=== PATIENT | male | born 1995 | race Caucasian/White ===

== ENCOUNTER 2024-09-06 09:00 | Emergency (ER) | payer OTHER ==
[~2024-09-06] VITALS: Ht 177.8 cm; Wt 64.0 kg
[2024-09-06 09:04] VITALS: BP 148/90; PULSE 78; RESP 16; TEMP 36.9; O2SAT 98
[2024-09-06] MEDS: KETOROLAC 30MG/ML VIAL IM STA (09:22)
[2024-09-06] MEDS: ACETAMINOPHEN 325MG TABLET PO STA (09:22)
[2024-09-06 09:55] LABS: CHLORIDE 97 mEq/L (98-107); POTASSIUM 3.8 mEq/L (3.5-5.1); SODIUM 136 mEq/L (136-145)
[2024-09-06 09:57] LABS: CARBON DIOXIDE 28 mEq/L (21-32)
[2024-09-06 10:02] LABS: CREATININE 0.7 mg/dL (0.6-1.3); GLUCOSE 97 mg/dL (70-105)
[2024-09-06 10:03] LABS: UREA NITROGEN BLOOD 6 mg/dL (9-23)
[2024-09-06 10:04] LABS: ALANINE AMINOTRANSFERASE 12 IU/L (10-49); ALBUMIN 4.9 g/dL (3.2-4.8); ASPARTATE AMINOTRANSFERASE 21 IU/L (<34); BILIRUBIN DIRECT 0.2 mg/dL (<=3.0)
[2024-09-06 10:05] LABS: BASOPHILS % 0.5 % (0.0-2.0); BILIRUBIN TOTAL 0.6 mg/dL (0.1-1.0); EOSINOPHILS % 3.7 % (0.0-5.0); HEMATOCRIT. 45.2 % (42.0-52.0); HEMOGLOBIN. 14.9 g/dL (14.0-18.0); LYMPHOCYTES % 8.4 % (20.0-50.0); MEAN CORPUSCULAR HEMOGLOBIN 30.1 pg (28.0-32.0); MEAN CORPUSCULAR HGB CONC 32.9 g/dL (31.0-37.0); MEAN CORPUSCULAR VOLUME 91.5 fL (80.0-94.0); MEAN PLATELET VOLUME 8.7 fl (7.4-10.4); MONOCYTES % 5.7 % (2.0-8.0); NEUTROPHILS % 81.7 % (40.0-76.0); PLATELET 224 x1000/uL (130-400); RED BLOOD CELL COUNT 4.95 mill/uL (4.7-6.1); WHITE BLOOD COUNT 10.6 x1000/uL (4.5-11.0)
[2024-09-06 10:24] LABS: PROTHROMBIN TIME 10.9 sec (9.6-11.0)
== END 2024-09-06 11:51 | disposition home or self-care (01) ==
LOC: ER 09:43
DX: R10.11 Right upper quadrant pain (principal)
CPT/HCPCS: 36415; 76705; 80048; 80076; 85025; 96372; 99285